=== PATIENT | female | born 1985 | race Caucasian/White ===

== ENCOUNTER 2017-04-19 05:35 | Day surgery (SDC) | payer OTHER ==
[~2017-04-19] VITALS: Ht 165.1 cm; Wt 75.0 kg
[~2017-04-19 05:35] MED LIST: ADDERALL XR 2020 MG PO; CRYSELLE1 EACH PO; ELAVIL10 MG PO; FIORICET 50-301 EACH PO; FLEXERIL10 MG PO; MOTRIN800 MG PO; TOPAMAX50 MG PO; VOLTAREN75 MG PO
[2017-04-19 05:52] VITALS: BP 123/80
[2017-04-19 10:01] VITALS: BP 126/80
[2017-04-19 10:47] VITALS: BP 120/79
== END 2017-04-19 10:48 | disposition home or self-care (01) ==
LOC: SDC
DX: D06.9 Carcinoma in situ of cervix, unspecified (principal); F17.200 Nicotine dependence, unspecified, uncomplicated
CPT/HCPCS: 88305; 88307; J0690; J1100; J1170; J1885; J2250; J2405; J3010

== ENCOUNTER 2017-08-07 21:01 | Emergency (ER) | payer OTHER ==
[~2017-08-07] VITALS: Ht 165.1 cm; Wt 73.9 kg
[2017-08-07 21:40] LABS: ADD MIUA? YES; BILIRUBIN NEGATIVE; BLOOD SMALL; COLOR YELLOW ((YELLOW)); GLUCOSE (STRIP) NEGATIVE; KETONES NEGATIVE; LEUKOCYTES NEGATIVE; NITRITE NEGATIVE; PROTEIN (STRIP) NEGATIVE; SPECIFIC GRAVITY 1.021 (1.000-1.030); UROBILINOGEN 0.2 MG/DL (0.2-1.0)
[2017-08-07 21:44] LABS: BACTERIA NONE SEEN /HPF; EPITHELIAL CELLS 1+ /HPF; MUCUS TRACE /LPF; RED BLOOD CELLS 0-5 /HPF (0-5); UCUL ADDED? NO; WHITE BLOOD CELLS 0-5 /HPF (0-5)
[2017-08-07 22:00] LABS: MCH 29.8 PG (29.0-34.0); MCHC 34.3 G/DL (30.0-36.0); MEAN PLAT.VOLUME 9.6 uM^3 (9.5-12.4); PLATELET COUNT 291 K/uL (156-360); RBC DIS.WIDTH-CV 11.9 % (11.8-14.6); WHITE BLOOD COUNT 8.9 K/uL (4.1-10.2)
[2017-08-07 22:15] LABS: CHLORIDE 108 mEq/L (99-109); POTASSIUM 4.2 mEq/L (3.7-5.4); SODIUM 141 mEq/L (136-147)
[2017-08-07 22:17] LABS: GLUCOSE 90 mg/dL (70-99)
[2017-08-07 22:18] LABS: ANION GAP 10 MEQ/L (2-14)
[2017-08-07 22:19] LABS: TOTAL BILIRUBIN 0.2 mg/dL (0.0-1.0)
[2017-08-07 22:20] LABS: ALKALINE PHOSPHATASE 60 IU/L (3-129)
[2017-08-07 22:21] LABS: GFR ESTIMATE (CALCULATED) > 59 mL/min/
[2017-08-07 22:22] LABS: UREA NITROGEN (BUN) 14 mg/dL (9-23)
[2017-08-07 22:30] LABS: QUANTITATIVE HCG < 4.0 MIU/ML
[2017-08-07] MEDS ORDERED: BENTYL10 MG PO (23:23)
[2017-08-07] MEDS ORDERED: COLACE100 MG PO (23:23)
[2017-08-07] MEDS ORDERED: ZANTAC150 MG PO (23:28)
[2017-08-07 23:50] VITALS: BP 114/80
== END 2017-08-07 23:50 | disposition home or self-care (01) ==
LOC: EME 21:01 → EXP 21:01
DX: R07.9 Chest pain, unspecified (principal); R10.12 Left upper quadrant pain; R11.0 Nausea; M79.602 Pain in left arm; K59.00 Constipation, unspecified; Z87.442 Personal history of urinary calculi; F17.200 Nicotine dependence, unspecified, uncomplicated
CPT/HCPCS: 74022; 80053; 81003; 84702; 85027; 93005; 99281; 99284